=== PATIENT | male | born 1965 | race Caucasian/White ===

== ENCOUNTER 2024-04-27 22:36 | Emergency (ER) | payer MEDICAID ==
[~2024-04-27] VITALS: Ht 167.6 cm; Wt 75.0 kg
[~2024-04-27 22:36] MED LIST: APIX2.5T PO; DEXA1 PO; FAMO20 PO
[2024-04-27 22:42] VITALS: TEMP 98.2
[2024-04-27] MEDS: AmLODIPine BESYLATE 5 MG TABLET PO ONE (23:52)
[2024-04-28 00:01] LABS: BASOPHILS % (AUTO) 0.7 % (0.0-2.0); EOSINOPHILS % (AUTO) 0.1 % (1.0-6.0); HEMATOCRIT 45.9 % (41-53); HEMOGLOBIN 15.2 g/dL (13.5-17.5); LYMPHOCYTES # (AUTO) 1.5 K/uL (1.0-4.8); LYMPHOCYTES % (AUTO) 20.6 % (22.0-44.0); MEAN CORPUSCULAR HEMOGLOBIN 31.3 pg (26.0-34.0); MEAN CORPUSCULAR VOLUME 95 fL (80-100); MONOCYTES # (AUTO) 0.5 K/uL (0.1-1.0); MONOCYTES % (AUTO) 7.1 % (2.0-9.0); NEUTROPHILS # (AUTO) 5.3 K/uL (1.8-7.7); NEUTROPHILS % (AUTO) 71.5 % (40.0-70.0); PLATELET COUNT (AUTO) 195 K/uL (150-450); RED BLOOD CELL COUNT(AUTO) 4.85 MIL/uL (4.50-5.90); RED CELL DISTRIBUTION WIDTH 13.7 % (11.5-14.5); WHITE BLOOD COUNT (AUTO) 7.4 K/uL (4.5-11.0)
[2024-04-28 00:08] LABS: ANION GAP 9 mmol/L (8-16); CALCIUM, TOTAL 9.8 mg/dL (8.8-10.5); CARBON DIOXIDE 26 mmol/L (22-29); CHLORIDE 105 mmol/L (98-107); GLOMERULAR FILTR. RATE CALC > 60 mL/min (>60); GLUCOSE,RANDOM 116 mg/dL (70-110); POTASSIUM 3.3 mmol/L (3.5-5.1); SODIUM SERUM 140 mmol/L (136-145); UREA NITROGEN, BLOOD 14 mg/dL (7-18)
[2024-04-28 00:18] LABS: TROPONIN I-HIGH SENSITIVITY 7 ng/L (<76)
[2024-04-28 00:30] VITALS: BP 139/97; PULSE 69; RESP 16
[2024-04-28] MEDS ORDERED: AMLO5TAB66 PO (01:03)
[2024-04-28] MEDS: POTASSIUM CHLORIDE 20 MEQ ER TABLET PO ONE (01:05)
== END 2024-04-28 01:16 | disposition home or self-care (01) ==
LOC: EMS 22:36
DX: I10 Essential (primary) hypertension (principal); E87.6 Hypokalemia; Z98.890 Other specified postprocedural states
CPT/HCPCS: 71045; 80048; 84484; 85025; 93005; 99285; 36415-L1; 36415-TC

== ENCOUNTER 2024-09-16 19:56 | Emergency (ER) | payer MEDICAID ==
[~2024-09-16] VITALS: Ht 165.1 cm; Wt 86.3 kg
[~2024-09-16 19:56] MED LIST changes: +AMLO5TAB66 PO
[2024-09-16 20:04] VITALS: TEMP 97.1
[2024-09-16] MEDS: HYDROCODONE/ACETAMINOPHEN 5-325 MG TABLET PO ONE (21:49)
[2024-09-16 21:52] VITALS: BP 147/95; PULSE 104; RESP 19; O2SAT 96
[2024-09-16] MEDS ORDERED: IBUP-1492 PO (22:28)
[2024-09-16] MEDS ORDERED: ACET-3385 PO (22:28)
== END 2024-09-16 22:58 | disposition home or self-care (01) ==
LOC: EMS 19:56
DX: M25.512 Pain in left shoulder (principal); I10 Essential (primary) hypertension; Z88.8 Allergy status to other drugs, medicaments and biological substances; Z79.01 Long term (current) use of anticoagulants; Z79.52 Long term (current) use of systemic steroids
CPT/HCPCS: 99283